=== PATIENT | male | born 1995 | race African-American/Black ===

== ENCOUNTER 2017-11-05 07:02 | Emergency (ER) | payer OTHER ==
[2017-11-05] MEDS: KETOROLAC 60 MG/2 ML VIAL (J1885) IM (07:41)
[2017-11-05] MEDS: METHOCARBAMOL 500 MG TAB PO (07:41)
== END 2017-11-05 08:32 | disposition home or self-care (01) ==
LOC: M ED 07:02
DX: S39.013A Strain of muscle, fascia and tendon of pelvis, initial encounter (principal); X50.3XXA Overexertion from repetitive movements, initial encounter; Y92.138 Other place on military base as the place of occurrence of the external cause
CPT/HCPCS: J1885

== ENCOUNTER → 2017-12-02 | Outpatient (CLI) | payer OTHER ==
[~2017-12-02] MED LIST: CONRAY-43 43% 50ML VIAL (Q9960) As Ordered; PROHANCE 279.3MG/ML 5ML VIAL (A9576) As Ordered
== END ==
LOC: M RADPRO 06:29
DX: M25.552 Pain in left hip (principal)
CPT/HCPCS: 27093

== ENCOUNTER 2018-12-23 02:33 | Emergency (ER) | payer OTHER ==
[~2018-12-23] VITALS: Ht 180.3 cm; Wt 74.5 kg
[~2018-12-23 02:33] MED LIST changes: -CONRAY-43 43% 50ML VIAL (Q9960) As Ordered; +IBUP80TA PO; -PROHANCE 279.3MG/ML 5ML VIAL (A9576) As Ordered; +ROBA500T PO
--- NOTE | 2018-12-23 05:34 | REPVR ---
PROCEDURE INFORMATION: Exam: CT Head Without Contrast Exam date and time: 12/23/2018 3:06 AM Clinical history: 23 years old, male; Injury or trauma; Fall; Initial encounter; Blunt trauma (contusions or hematomas); Additional info: Tr TECHNIQUE: Imaging protocol: Computed tomography of the head without contrast. Radiation optimization: All CT scans at this facility use at least one of these dose optimization techniques: automated exposure control; mA and/or kV adjustment per patient size (includes targeted exams where dose is matched to clinical indication); or iterative reconstruction. COMPARISON: No relevant prior studies available. FINDINGS: Brain: The cortical/white matter interfaces are preserved throughout the brain. There is no evidence of intracranial hemorrhage. Ventricles: The ventricular system is normal in size and configuration. Bones/joints: No acute fractures of the skull are identified. Sinuses: The visualized paranasal sinuses are clear. Mastoid air cells: The visualized mastoid air cells are clear. Soft tissues: The soft tissues appear unremarkable. IMPRESSION: Normal appearance of the brain. Electronically signed by: Ailin Jane On 12/23/2018 05:34:04 AM
--- NOTE | 2018-12-23 05:40 | REPVR ---
PROCEDURE INFORMATION: Exam: CT Cervical Spine Without Contrast Exam date and time: 12/23/2018 3:15 AM Clinical history: 23 years old, male; Numbness; Additional info: Tr TECHNIQUE: Imaging protocol: Computed tomography images of the cervical spine without contrast. Radiation optimization: All CT scans at this facility use at least one of these dose optimization techniques: automated exposure control; mA and/or kV adjustment per patient size (includes targeted exams where dose is matched to clinical indication); or iterative reconstruction. COMPARISON: No relevant prior studies available. FINDINGS: Vertebrae: There is loss of cervical lordosis with a mild kyphosis through the cervical spine. No fractures or subluxations identified. Discs/Spinal canal/Neural foramina: No significant spinal canal stenosis is seen. Disc spaces are maintained. Soft tissues: The paraspinous soft tissues appear unremarkable. Assessment of the soft tissues in the lower cervical region is somewhat limited related to beam hardening artifact. Nasopharynx: There is mild hypertrophy of the adenoids. Lungs: Not included in the [id number]. IMPRESSION: Loss of the cervical lordosis with a mild kyphosis through the cervical spine. No acute fractures or subluxations identified. Electronically signed by: Ailin Jane On 12/23/2018 05:39:40 AM
[2018-12-23 06:09] VITALS: BP 137/84
== END 2018-12-23 06:11 | disposition home or self-care (01) ==
LOC: M ED 02:33
DX: S16.1XXA Strain of muscle, fascia and tendon at neck level, initial encounter (principal); S00.03XA Contusion of scalp, initial encounter; X50.0XXA Overexertion from strenuous movement or load, initial encounter; Y92.89 Other specified places as the place of occurrence of the external cause; Y93.89 Activity, other specified; Y99.1 Military activity

== ENCOUNTER 2019-01-03 21:00 | Emergency (ER) | payer OTHER ==
[~2019-01-03] VITALS: Ht 180.3 cm; Wt 75.5 kg
[2019-01-03] MEDS ORDERED: cefTRIAXone SOD 250 MG VIAL (J0696) IM ONE (22:15)
[2019-01-03] MEDS ORDERED: AZITHROMYCIN 250 MG TAB PO ONE (22:15)
[2019-01-03] MEDS ORDERED: LIDOCAINE 1% SDV 5 ML VIAL DILUENT ONE (22:15)
[2019-01-03 22:33] VITALS: BP 156/81
[2019-01-03 23:11] LABS: CHLAMYDIA DNA AMPLIFICATION POSITIVE (NEGATIVE); GC DNA AMPLIFICATION NEGATIVE (NEGATIVE)
== END 2019-01-03 22:34 | disposition home or self-care (01) ==
LOC: M ED 21:00
DX: N34.1 Nonspecific urethritis (principal); R31.9 Hematuria, unspecified; R30.0 Dysuria
CPT/HCPCS: 81001; 87086; 87491; 87591; 96372; 99283; J0696